=== PATIENT | female | born 1950 | race Caucasian/White ===

== ENCOUNTER 2018-07-20 07:47 | Day surgery (SDC) | payer OTHER, MEDICARE ==
[2018-07-14 13:16] VITALS: BMI 20.7
[2018-07-20] MEDS ORDERED: LIDOCAINE 1%/EPI 1:100000 (20 ML MULTI DOSE VIAL) ONE (09:43)
[2018-07-20] MEDS ORDERED: BUPIVACAINE HCL/PF 0.5% (5MG/ML) 10 ML VIAL ONE (09:43)
[2018-07-20] MEDS ORDERED: ERYTHROMYCIN 0.5% OPHTHALMIC OINTMENT 3.5 GM TUBE ONE (09:43)
[2018-07-20] MEDS ORDERED: TETRACAINE 0.5% OPHTH SOLN 2 ML BOTTLE ONE (09:43)
[2018-07-20] MEDS ORDERED: POVIDONE-IODINE 5% OPHTHALMIC PREP 30 ML SOLUTION ONE (09:43)
[2018-07-20] MEDS ORDERED: MIDAZOLAM HCL 2 MG/2 ML SINGLE DOSE VIAL ONE (10:11)
[2018-07-20] MEDS ORDERED: PROPOFOL 20 ML ONE ×2 (10:11)
[2018-07-20] MEDS ORDERED: ONDANSETRON 4 MG/2 ML VIAL ONE (10:17)
[2018-07-20] MEDS ORDERED: KETOROLAC TROMETHAMINE 30 MG/1 ML VIAL ONE (10:17)
[2018-07-20] MEDS ORDERED: DEXAMETHASONE SOD PHOSPHATE 4 MG/1 ML VIAL ONE (10:17)
[2018-07-20] MEDS ORDERED: PROMETHAZINE HCL 25 MG/1 ML VIAL IVPUSH PRN (11:00)
[2018-07-20] MEDS ORDERED: oxyCODONE HCL 5 MG TABLET PO PRN ×2 (11:00)
[2018-07-20] MEDS ORDERED: ONDANSETRON 4 MG/2 ML VIAL IVPUSH PRN (11:00)
--- NOTE | 2018-07-20 11:32 | OP ---
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 PROCEDURE: 1. Examination under anesthesia. 2. Punctoplasty, right lower lid. 3. Excision of conjunctival chalasis with right inferior nasal fornix. SURGEON: Hipolito Patino ANESTHESIA: Local with sedation. COMPLICATIONS: None. ESTIMATED BLOOD LOSS: Less than 1 mL. OPERATIVE REPORT: The patient was brought to the operating room and placed on the operating room table. Vital signs were monitored by Anesthesia. Tetracaine was placed in both eyes. After intravenous sedation was administered, a time-out was performed, and 2% Xylocaine and 1:100,000 epinephrine with 0.5% Marcaine was injected subconjunctivally in the nasal right lower lid and area of the plica and right inferior fornix for a total of less than 1 mL. The patient was prepped and draped in the usual sterile fashion exposing both eyes. The right punctum was dilated with a punctal dilator and then a posterior punctoplasty was performed with Paula scissor widening out the punctum and then the punctum was again dilated. Then the inferior plica and inferior nasal conjunctival chalasis was minimally cauterized then it was excised and re-cauterized for hemostasis. The lid was in normal position. During the excision at the conjunctiva, a lid speculum was used to retract the eyelid. This was removed, and it was seen that the punctoplasty was now patent and well opposed to the globe without intervening conjunctival chalasis or plical tissue. The lower canaliculus was again dilated. Erythromycin ointment was placed in the inferior fornix in the punctum, and the patient was taken to the recovery room in stable condition. There were no complications. Emily [id number]
[2018-07-20] MEDS ORDERED: ACETAMINOPHEN 325 MG TABLET (FP) ONE (11:55)
[2018-07-20 12:57] VITALS: TEMP 97.7
[2018-07-20 13:01] VITALS: BP 115/64; PULSE 74
[2018-07-20] MEDS ORDERED: ACETAMINOPHEN 325 MG TABLET (FP) PO PRN (14:04)
== END 2018-07-20 12:40 | disposition home or self-care (01) ==
LOC: FASU 07:47
PROVIDERS: ATTEND Ophthalmology
PROC: 08BN0ZZ Excision of Right Upper Eyelid, Open Approach (ICD-10-PCS; principal; 2018-07-20 10:27)
DX: H11.429 Conjunctival edema, unspecified eye (principal); H04.201 Unspecified epiphora, right side; H04.5 Stenosis and insufficiency of lacrimal passages
CPT/HCPCS: 94760